=== PATIENT | male | born 1965 | race Caucasian/White ===

== ENCOUNTER 2017-11-10 15:51 | Emergency (ER) | payer MEDICARE, OTHER ==
[2017-11-10] MEDS ORDERED: HYDROCODONE/APAP 7.5/325MG TABLET PO ONE (16:01)
--- NOTE | 2017-11-10 16:06 | Emergency Department Record ---
History of Present Illness - General Chief complaint: Hemorrhoids Stated complaint: HEMMROID INFECTION Time Seen by Provider: 11/10/17 15:55 Source: Patient Mode of Arrival: Ambulatory Limitations: No limitations - History of Present Illness Initial comments: 52 yo male presents with rectal pain the last few days. He has had a history of hemorrhoids. He has been doing sitx baths, lidocaine, Preparation H. He scratched the area with his finger nail and had some bloody drainage. No fevers. He is worried it is infected at this time. He is having bowel movements. No vomiting or diarrhea. He is taking motrin for pain. MD complaint: Other (hemorrhoids) Onset/Timin -: Days(s) Radiation: None Severity scale (1-10): 9 Quality: Painless Consistency: Constant, Intermittent Improves with: None Worsens with: None Context: Hemorrhoids Associated Symptoms: Denies other symptoms Treatments Prior to Arrival: OTC meds, Topical ointment - Related Data Previous Rx's Medication Instructions Recorded Amoxicillin/Potassium Clav 1 tab PO BID #20 tab 11/10/17 [Augmentin 875-125 Tablet] Hydrocortisone Acetate [Anusol-Hc] 25 mg RC BID #14 supp.rect 11/10/17 Polyethylene Glycol 3350 [Miralax] 1 packet PO DAILY #15 packet 11/10/17 Allergies Allergy/AdvReac Type Severity Reaction Status Date / Time No Known Drug Allergies Allergy Verified 11/10/17 16:00 Travel Screening - Travel/Exposure Within Last 30 Days Have you traveled within the last 30 days?: No - Travel/Exposure Within Last Year Have you traveled outside the [place] in the last year?: No - Additonal Travel Details Have you been exposed to anyone with a communicable illness?: No - Travel Symptoms Symptom Screening: None Review of Systems Constitutional: Denies: Chills, Fever, Malaise, Weakness Eyes: Denies: Eye discharge ENT: Denies: Congestion, Throat pain Respiratory: Denies: Cough, Dyspnea, Wheezes Cardiovascular: Denies: Chest pain, Syncope Endocrine: Denies: Fatigue Gastrointestinal: Reports: Hematochezia. Denies: Abdominal pain, Diarrhea, Hematemesis, Nausea, Vomiting Genitourinary: Denies: Dysuria, Frequency Musculoskeletal: Denies: Arthralgia, Back pain, Myalgia Skin: Denies: Bruising, Change in color, Rash Neurological: Denies: Headache Psychiatric: Denies: Anxiety Hematological/Lymphatic: Denies: Blood Clots, Easy bleeding, Easy bruising Past Medical History - SOCIAL HISTORY Smoking Status: Former smoker Alcohol Use: None Drug Use: None - RESPIRATORY Hx Respiratory Disorders: No - CARDIOVASCULAR Hx Cardio Disorders: No - NEURO Hx Neuro Disorders: No - GI Hx GI Disorders: No - Hx Genitourinary Disorders: No - ENDOCRINE Hx Endocrine Disorders: No Hx Diabetes: No Hx Thyroid Disease: No - MUSCULOSKELETAL Hx Musculoskeletal Disorders: No - PSYCH Hx Psych Problems: Yes Comment:: PTSD - HEMATOLOGY/ONCOLOGY Hx Hematology/Oncology Disorders: No Family Medical History Any Significant Family History?: No Hx Cancer: Mother, Grandparents Hx Stroke: Father, Grandparents Physical Exam - General General Appearance: Alert, Oriented x3, Cooperative, No acute distress Limitations: No limitations - Head Head exam: Normal inspection - Eye Eye exam: Normal appearance - ENT ENT exam: Normal exam Ear exam: Normal external inspection Nasal Exam: Normal inspection - Neck Neck exam: Normal inspection - GI/Abdominal GI/Abdominal exam: Soft. negative: Tenderness - Rectal Rectal exam: Heme (-) stool, Hemorrhoids, Normal inspection, Other (The anus is normal to inspection except a fissured area on the right, he is tender on the right side. NO mass, no visible or palpable signs of abscess, anus is patent and normal on inspection, ELLIE has tenderness on the right but no mass or fullness to suggest an internal hemorrhoid or abscess). negative: Black stool, Bloody stool, Decreased rectal tone, Fecal impaction, Heme (+) stool - Extremities Extremities exam: Normal inspection - Back Back exam: Reports: Normal inspection. Denies: CVA tenderness (R), CVA tenderness (L) - Neurological Neurological exam: Alert, Oriented X3 - Psychiatric Psychiatric exam: Normal affect, Normal mood - Skin Skin exam: Dry, Intact, Normal color, Warm Course - Reevaluation(s) Reevaluation #1: 11/10/17 16:05 EMR reviewed from 2014 visits post hemorrhoidectomy 11/10/17 16:32 The examination is very on inspection and palpation. He has an area of minimal erythema that appears it could be a fissure or abrasion from scratching, I do not see or feel a mass or abscess. We discussed home care, antibiotics, reasons for immediate recheck. Disposition Disposition: Discharge Clinical Impression: Rectal pain, Anal fissure Disposition: Home, Self-Care Condition: (1) Good Instructions: Hemorrhoids (ED) Additional Instructions: Take the prescriptions provided today as directed. Call your family doctor. Call to schedule the next available appointment for a recheck. Return to ED if your symptoms worsen or if you have any new concerns. Review the final Emergency Record and test results with your doctor on follow up Take the stool softener to aid with bowel movements to make them soft Prescriptions: Amoxicillin/Potassium Clav [Augmentin 875-125 Tablet] 1 tab PO BID #20 tab Hydrocortisone Acetate [Anusol-Hc] 25 mg RC BID #14 supp.rect Polyethylene Glycol 3350 [Miralax] 1 packet PO DAILY #15 packet Forms: Patient Portal Access Time of Disposition: 16:08 Quality - Quality Measures Quality Measures: N/A - Blood Pressure Screening Does Patient Have Any of the Following: No Blood Pressure Classification: Hypertensive Reading Systolic Measurement: 124 Diastolic Measurement: 97 Screening for High Blood Pressure: < Pre-Hypertensive BP, F/U Documented > [ G8950] Pre-Hypertensive Follow-up Interventions: Referral to alternative/primary care provider.
== END 2017-11-10 16:14 | disposition home or self-care (01) ==
LOC: ER 15:51
DX: K60.0 Acute anal fissure (principal); Z87.891 Personal history of nicotine dependence
CPT/HCPCS: 99282; 99283